=== PATIENT | female | born 1930 | race Caucasian/White ===

== ENCOUNTER 2017-04-17 13:48 | Inpatient (IN) | payer MEDICARE, OTHER ==
[2017-04-17 14:23] LABS: BASO % 0.5 % (0.0-2.0); EOS % 0.5 % (0.0-4.0); LYMPH # 0.5 K/uL (1.0-4.3); LYMPH % 5.7 % (20.0-40.0); MEAN CELL VOLUME 88.5 fL (81.0-99.0); MEAN CORPUSCULAR HEMOGLOBIN 28.1 pg (27.0-31.0); MEAN CORPUSCULAR HGB CONC 31.8 g/dL (33.0-37.0); MEAN PLATELET VOLUME 8.1 fL (7.2-11.7); MONO # 0.7 K/uL (0.0-0.8); MONO % 8.6 % (0.0-10.0); NRBC % 0.1 % (0.0-2.0); PLATELET COUNT 271 K/uL (130-400); RED CELL DISTRIBUTION WIDTH 14.7 % (11.5-14.5); WHITE BLOOD COUNT 8.5 K/uL (4.8-10.8)
[2017-04-17 14:34] LABS: ALKALINE PHOSPHATASE 88 U/L (38-126); ALT/SGPT 36 U/L (9-52); AST/SGOT 22 U/L (14-36); BLOOD UREA NITROGEN 16 mg/dL (7-17); CARBON DIOXIDE 31 mmol/L (22-30); CHLORIDE 103 mmol/L (98-107); GFR AFRICAN-AMERICAN > 60; GLUCOSE,RANDOM 106 mg/dL (65-105); POTASSIUM 3.6 mmol/L (3.6-5.2); SODIUM 138 mmol/L (132-148); TOTAL PROTEIN 6.4 g/dL (6.3-8.3)
--- NOTE | 2017-04-17 14:36 | RAD ---
PROCEDURE: CHEST RADIOGRAPH, 1 VIEW HISTORY: chest pain COMPARISON: None available. FINDINGS: LUNGS: Probable compressive atelectasis right lung base -associated right pleural effusion suggested. Right basal infiltrate here not excluded PLEURA: No pneumothorax. Right pleural effusion and mild moderate. Minimal left pleural effusion probable CARDIOVASCULAR: Cardiomegaly OSSEOUS STRUCTURES: Thoracic spondylosis. Bilateral shoulder arthrosis VISUALIZED UPPER ABDOMEN: Normal. OTHER FINDINGS: None. IMPRESSION: Mild moderate right pleural effusion with probable associated compressive atelectasis right lung base. Right basal infiltrate here not excluded Minimal left pleural effusion probable Cardiomegaly -chronicity unknown
[2017-04-17 14:37] LABS: ALB/GLOB RATIO 0.9 (1.0-2.1)
--- NOTE | 2017-04-17 14:41 | C.PDOC ---
History Of Present Illness 87 year old female is brought into the ED by EMS STP tripping and falling, brought in confused and she does not recall falling. According to EMS patient was found by the police in the park where she tripped and fell. Patient states she lives alone and denies any other complaints at the time. Time Seen by Provider: 04/17/17 14:08 Chief Complaint (Nursing): Medical Clearance History Per: Patient, EMS History/Exam Limitations: other (Confusion) Onset/Duration Of Symptoms: Hrs Current Symptoms Are (Timing): Still Present Severity: Mild Recent travel outside of the [place]: No Additional History Per: Patient Past Medical History Reviewed: Historical Data, Nursing Documentation, Vital Signs Vital Signs: Last Vital Signs Temp 98 F 04/17/17 21:01 Pulse 81 04/17/17 21:01 Resp 20 04/17/17 21:01 BP 181/61 H 04/17/17 21:01 Pulse Ox 96 04/17/17 21:01 - Medical History PMH: Atrial Fibrillation, CHF, HTN, Hypothyroidism Surgical History: No Surg Hx Family History: States: Unknown Family Hx - Social History Hx Alcohol Use: No Hx Substance Use: No - Immunization History Hx Tetanus Toxoid Vaccination: No Hx Influenza Vaccination: No Hx Pneumococcal Vaccination: No Review Of Systems Review Of Systems: ROS cannot be obtained secondary to pt's inabilty to answer questions. (secondary to confusion) Physical Exam - Physical Exam Appears: Non-toxic, Confused Skin: Normal Color, Warm, Dry Head: Abrasion (contusion occipital scalp ), No Other (No gross step off) Eye(s): bilateral: Normal Inspection Nose: No Discharge, No Deformity Oral Mucosa: Moist Throat: Normal, No Erythema, No Exudate Neck: Normal ROM, No Midline Cervical Tenderness, Supple Chest: Symmetrical Cardiovascular: Rhythm Regular, No Murmur Respiratory: Normal Breath Sounds, No Rales, No Rhonchi, No Wheezing Gastrointestinal/Abdominal: Soft, No Tenderness, No Guarding, No Rebound Extremity: Normal ROM, No Pedal Edema, No Calf Tenderness, No Deformity, No Swelling Neurological/Psych: Other (AOx2, person and place) Disoriented To: Time ED Course And Treatment - Laboratory Results Result Diagrams: 04/17/17 14:19 04/17/17 14:19 O2 Sat by Pulse Oximetry: 97 (On RA) Pulse Ox Interpretation: Normal - Radiology CXR: Interpreted by Me, Viewed By Me CXR Interpretation: Yes: Other (Mild moderate right pleural effusion with probable associated compressive atelectasis right lung base. Right basal infiltrate here not excluded. Minimal left pleural effusion probable. Cardiomegaly -chronicity unknown) - CT Scan/US Head CT Other Rad Studies (CT/US): Interpreted By Me, Read By Radiologist, Radiology Report Reviewed CT/US Interpretation: PROCEDURE: CT HEAD WITHOUT CONTRAST. HISTORY: dizziness. COMPARISON: None available. TECHNIQUE: Axial computed tomography images were obtained through the head/brain without intravenous contrast. Radiation dose: Total exam DLP = 791 mGy-cm. This CT exam was performed using one or more of the following dose reduction techniques: Automated exposure control, adjustment of the mA and/or kV according to patient size, and/or use of iterative reconstruction technique. FINDINGS: HEMORRHAGE: No intracranial hemorrhage. BRAIN: No mass effect or edema. Scattered focal lucencies in the subcortical and periventricular white matter suggestive for chronic microvascular ischemic change. More confluent low attenuation seen within the posterior right frontal subcortical region as well as the right posterior parieto-occipital and left occipital regions suggestive for ischemic change likely chronic. Prominent left basal ganglia lacunar infarcts. Additional adjacent lacunar infarcts in the left external capsule. Punctate right caudate head and thalamic lacunar infarcts. VENTRICLES: Unremarkable. No hydrocephalus. CALVARIUM: Unremarkable. PARANASAL SINUSES: Unremarkable as visualized. No significant inflammatory changes. MASTOID AIR CELLS: Unremarkable as visualized. No inflammatory changes. OTHER FINDINGS: Mild soft tissue swelling overlying the posterior occipital cranium. . IMPRESSION: 1. Mild soft tissue swelling overlying the posterior occipital cranium. 2. Chronic microvascular ischemic change. 3. Probable chronic infarcts within the posterior right frontal and posterior right parieto-occipital and left occipital regions as described above. 4. Chronic lacunar infarcts in the right caudate and thalamic regions as well as the left basal ganglia and external capsule regions. If focal neurologic deficit persists, consider MRI. Medical Decision Making Medical Decision Making: Plan: * EKG ordered * CT head ordered * Blood work ordered * CXR ordered * UA ordered Assessment: AMS STP tripping and falling. Case discussed with Dr. Moreno, will be admitted to telemetry for syncope and AMS. Pt became combative and wanted to go home, pt is still confused and is unable to be d/c to herself there is no family present in the ED. Pt is placed in restraints secondary to agitation to protect herself and the staff. Disposition Discussed With .: Loyda Moreno Doctor Will See Patient In The: Hospital Counseled Patient/Family Regarding: Diagnosis - Disposition Disposition: HOSPITALIZED Disposition Time: 16:19 Condition: FAIR - Clinical Impression Clinical Impression: Syncope, Mental status change - Scribe Statement The provider has reviewed the documentation as recorded by the Scribe Hugo Fontenot All medical record entries made by the Scribe were at my direction and personally dictated by me. I have reviewed the chart and agree that the record accurately reflects my personal performance of the history, physical exam, medical decision making, and the department course for this patient. I have also personally directed, reviewed, and agree with the discharge instructions and disposition.
[2017-04-17 15:03] LABS: NEUTROPHIL 90 % (50-75); TOTAL CELLS COUNTED 100
--- NOTE | 2017-04-17 15:09 | CT ---
PROCEDURE: CT HEAD WITHOUT CONTRAST. HISTORY: dizziness COMPARISON: None available. TECHNIQUE: Axial computed tomography images were obtained through the head/brain without intravenous contrast. Radiation dose: Total exam DLP = 791 mGy-cm. This CT exam was performed using one or more of the following dose reduction techniques: Automated exposure control, adjustment of the mA and/or kV according to patient size, and/or use of iterative reconstruction technique. FINDINGS: HEMORRHAGE: No intracranial hemorrhage. BRAIN: No mass effect or edema. Scattered focal lucencies in the subcortical and periventricular white matter suggestive for chronic microvascular ischemic change. More confluent low attenuation seen within the posterior right frontal subcortical region as well as the right posterior parieto-occipital and left occipital regions suggestive for ischemic change likely chronic. Prominent left basal ganglia lacunar infarcts. Additional adjacent lacunar infarcts in the left external capsule. Punctate right caudate head and thalamic lacunar infarcts. VENTRICLES: Unremarkable. No hydrocephalus. CALVARIUM: Unremarkable. PARANASAL SINUSES: Unremarkable as visualized. No significant inflammatory changes. MASTOID AIR CELLS: Unremarkable as visualized. No inflammatory changes. OTHER FINDINGS: Mild soft tissue swelling overlying the posterior occipital cranium. . IMPRESSION: 1. Mild soft tissue swelling overlying the posterior occipital cranium. 2. Chronic microvascular ischemic change. 3. Probable chronic infarcts within the posterior right frontal and posterior right parieto-occipital and left occipital regions as described above. 4. Chronic lacunar infarcts in the right caudate and thalamic regions as well as the left basal ganglia and external capsule regions. If focal neurologic deficit persists, consider MRI.
[2017-04-17 16:35] LABS: RBC URINE 43 /hpf (0-3); URINE BACTERIA FEW (<OCC); URINE BILIRUBIN NEGATIVE (NEGATIVE); URINE BLOOD 2+ (NEGATIVE); URINE COLOR YELLOW (YELLOW); URINE GLUCOSE (UA) NORMAL (Normal); URINE KETONE NEGATIVE (NEGATIVE); URINE LEUKOCYTE ESTERASE 1+ Leu/uL (Negative); URINE PROTEIN 2+ mg/dL (NEGATIVE); URINE UROBILINOGEN NORMAL mg/dL (0.2-1.0); WBC URINE 10 /hpf (0-5)
--- NOTE | 2017-04-17 23:18 | CT ---
EXAM: CT Chest Without Intravenous Contrast CLINICAL HISTORY: 87 years old, female; Pain; Chest pain; Patient HX: Cxr 04-17-17; Additional info: Ab. Chest x /rays TECHNIQUE: Axial computed tomography images of the chest without intravenous contrast. All CT scans at this facility use one or more dose reduction techniques, viz.: automated exposure control; ma/kV adjustment per patient size (including targeted exams where dose is matched to indication; i.e. head); or iterative reconstruction technique. Coronal and sagittal reformatted images were created and reviewed. COMPARISON: No relevant prior studies available. FINDINGS: Lungs: There are moderate right and small left pleural effusions with some adjacent compressive atelectasis. It is difficult to exclude a component of aspiration or pneumonia near the lung bases. There are additional small airspace opacities in the right middle lobe and lingula. These may represent atelectasis or early infiltrates. The upper lungs are clear. Mild scarring in the lung apices. Pleural space: See above. Heart: The heart is mildly enlarged. There is coronary artery calcification. No significant pericardial effusion. There is calcification of the aortic root. Mediastinum: The mid and upper esophagus are patulous. If indicated, this could be further evaluated with esophagram or upper endoscopy. Hilar regions are limited without IV contrast. Thyroid: Right thyroid appears enlarged. If indicated, this could be further evaluated with thyroid sonogram. Bones/joints: Moderate to severe degenerative spine changes. There is marked diffuse osteopenia. No acute fracture. No dislocation. Soft tissues: Unremarkable. Vasculature: Thoracic aorta is densely atherosclerotic and tortuous without aneurysm. The great vessels also demonstrate atherosclerotic calcification. Lymph nodes: No axillary adenopathy. No definite mediastinal adenopathy. Upper abdomen: Scans through the upper abdomen demonstrate no definite acute abnormalities. IMPRESSION: 1. Right thyroid appears enlarged. If indicated, this could be further evaluated with thyroid sonogram. 2. The mid and upper esophagus are patulous. If indicated, this could be further evaluated with esophagram or upper endoscopy. 3. There are moderate right and small left pleural effusions with some adjacent compressive atelectasis. It is difficult to exclude a component of aspiration or pneumonia near the lung bases. 4. There are additional small airspace opacities in the right middle lobe and lingula. These may represent atelectasis or early infiltrates. 5. Additional incidental and/or chronic findings as described.
[2017-04-18] MEDS: Levothyroxine 50 MCG TAB PO SCH (06:29)
[2017-04-18 08:13] LABS: HEMATOCRIT 29.8 % (34.0-47.0); MEAN CELL VOLUME 87.1 fL (81.0-99.0); MEAN CORPUSCULAR HEMOGLOBIN 28.3 pg (27.0-31.0); MEAN CORPUSCULAR HGB CONC 32.5 g/dL (33.0-37.0); MEAN PLATELET VOLUME 8.5 fL (7.2-11.7); RED CELL DISTRIBUTION WIDTH 14.7 % (11.5-14.5)
[2017-04-18 08:22] LABS: BLOOD UREA NITROGEN 12 mg/dL (7-17); CALCIUM 8.1 mg/dl (8.6-10.4); CARBON DIOXIDE 30 mmol/L (22-30); CHLORIDE 103 mmol/L (98-107); CHOLESTEROL 93 mg/dL (0-199); GFR AFRICAN-AMERICAN > 60; GLUCOSE,RANDOM 85 mg/dL (65-105); IRON 18 ug/dL (37-170); POTASSIUM 3.1 mmol/L (3.6-5.2); SODIUM 138 mmol/L (132-148)
[2017-04-18 08:52] LABS: THYROID STIMULATING HORMONE 4.06 mIU/L (0.46-4.68)
[2017-04-18 09:26] LABS: FOLATE > 20.0 ng/mL
--- NOTE | 2017-04-18 09:27 | HP ---
CHIEF COMPLAINT: Confusion. HISTORY OF PRESENT ILLNESS: Ms. Vania Vinson is an 87-year-old female, brought to the emergency room by EMS, has been tripping and falling, confused, and she does not recall falling. According to EMS, the patient was found by the police in the park where she tripped and fell. The patient states that she lives alone and denies any other complaints at this time. I saw the patient in the ER. The patient was confused, got some medications and now was on one-to-one because of the anxiety. PAST MEDICAL HISTORY: Atrial fibrillation, congestive heart failure, hypertension, hypothyroidism. HABITS: No alcohol. No substance abuse. No smoking. FAMILY HISTORY: Father and mother, noncontributory. REVIEW OF SYSTEMS: The patient was seen and examined at the bedside, looks nontoxic, confused. Temperature is fine. Has contusion in the occipital scalp, no gross injuries. No fever. No chills. No hematuria or hematochezia. Review of systems actually cannot be obtained secondary to the patient's condition and answers. PHYSICAL EXAMINATION: VITAL SIGNS: Temperature 98.1, pulse 80, respiratory rate 16, blood pressure 140/81, pulse oximetry 97. HEENT: Head, normocephalic and atraumatic. Eyes, PERRLA. Extraocular muscles are intact. Conjunctivae clear. Nose patent. Mucous membranes moist. NECK: Supple. No carotid bruit or thyromegaly. CHEST: Bilaterally symmetrical. HEART: S1 and S2 positive. LUNGS: Clear to auscultation. ABDOMEN: Soft. Bowel sounds present. No organomegaly. EXTREMITIES: No edema. No cyanosis. NEUROLOGIC: The patient is sleepy. Moving all 4 extremities. Does not look like any focal deficit. LABORATORY DATA: White blood cells 8.5, hemoglobin 8.6, hematocrit 27.0, platelets 271. Sodium 138, potassium 3.6, BUN 16, creatinine 0.8, glucose 106. ASSESSMENT AND PLAN: Ms. Vania Vinson is an 87-year-old lady with anemia, hyperglycemia, came with altered mental status. CAT scan of the head done, showed mild tissue swelling overlying the posterior occipital cranium, chronic microvascular ischemic changes, probably chronic infarcts within the posterior right frontal and posterior right occipital and left occipital region, chronic lacunar infarction in the right caudate and thalamic region as well as the left basal ganglia and external capsular region. The patient has been tripping and falling, rule out syncope. The patient is being combative and wanted to go home. The patient was still confused, unable to be discharged to her home, that will be unsafe discharge. No family in the ED. The patient was put on restraint secondary to agitation and to protect herself and staff. Then after giving Ativan, she was quiet, but still was on one-to-one. The patient has history of atrial fibrillation, congestive heart failure, hypertension, and hypothyroidism. We will repeat labs. Call neurology consult with Dr. Samson Solis. Started on Colace, Cozaar, amlodipine, and Pradaxa. Home medications are levothyroxine and tramadol. Gastrointestinal and deep venous thrombosis prophylaxes. Repeat labs. We will follow up. Loyda Moreno MD
[2017-04-18] MEDS ORDERED: Potassium Chloride 20 mEq ER Tab PO ONE (11:00)
--- NOTE | 2017-04-18 15:53 | PCM.PSYCH ---
Initial Psychiatric Evaluation - Initial Psychiatric Evaluation Type of Admission: Voluntary Legal Status: Capacity Chief Complaint (in patient's own words): "I'm depressed and I need to pee" History of Present Illness and Precipitating Events: The pt is seen, chart reviewed, case discussed with staff Pt is a 87y/o female with a history of AFIB, CHF, HTN, Hypothyroidism who was brought to the ED for tripping and falling. Today pt was consulted because of delirium. Pt was found by the police wandering around the park where she tripped and fell. Pt was interviewed with the help of one of the employees translating. Pt is a poor historian was agitated and irritable during the interview. Pt was very guarded and uncooperative during the interview. Pt reports that she lives alone. Pt appears to be disorganized, demented and forgetful. Pt was combative and repeatedly attempted to get out of bed during the interview. Pt is not oriented to person, place and time. When asked the year , pt said "[birth year]16." When asked if she was depressed, the Pt reported that "I don' t know, I am depressed and I need to Pee." Pt continued to repeat this answer to every question afterwards the rest of the interview. As per the staff, pt was yelling and cursing at the staff and at times tried to hit the staff. However, denies any SI/or any AVH. Past MHX: AFIB, CHF, HTN, Hypothyroidism Current Medications: Active Medications Generic Name Dose Route Start Last Admin Trade Name Freq PRN Reason Stop Dose Admin Amlodipine Besylate 10 mg 04/18/17 10:00 04/18/17 09:32 Norvasc PO 10 mg DAILY MARYBEL Administration Chlorthalidone 25 mg 04/18/17 10:00 04/18/17 09:33 Hygroton PO 25 mg DAILY MARYBEL Administration Dabigatran 75 mg 04/18/17 10:00 04/18/17 09:34 Pradaxa PO 75 mg DAILY MARYBEL Administration Docusate Sodium 100 mg 04/17/17 17:45 04/18/17 09:33 Colace PO 100 mg DAILY MARYBEL Administration Haloperidol Lactate 1 mg 04/18/17 13:08 Haldol IM Q6 PRN Agitation Levothyroxine Sodium 50 mcg 04/18/17 06:30 04/18/17 06:29 Synthroid PO 50 mcg DAILY@0630 MARYBEL Administration Losartan Potassium 50 mg 04/18/17 10:00 04/18/17 09:32 Cozaar PO 50 mg DAILY MARYBEL Administration Pneumococcal Polyvalent Vaccine 0.5 ml 04/19/17 14:00 Pneumovax 23 Vaccine IM 04/19/17 14:01 .ONCE ONE Quetiapine Fumarate 25 mg 04/18/17 13:15 04/18/17 15:02 Seroquel PO Not Given DAILY MARYBEL Tramadol HCl 25 mg 04/17/17 17:36 Ultram PO Q4 PRN Pain, Mild (1-3) Past Psychiatric History - Past Psychiatric History Previous Treatment History: None Pertinent Medical Hx (Current Medical&Sleep Prob, Allergies): Allergies Allergy/AdvReac Type Severity Reaction Status Date / Time No Known Allergies Allergy Verified 04/03/15 10:06 Chlorthalidone [Hygroton] 25 mg PO DAILY 04/03/15 Dabigatran [Pradaxa] 75 mg PO DAILY 04/03/15 Docusate [Colace] 100 mg PO DAILY 04/03/15 Levothyroxine [Synthroid] 50 mg PO DAILY 04/03/15 Losartan [Cozaar] 50 mg PO DAILY 04/03/15 Tramadol HCl [Tramadol HCl] 25 mg PO Q4 PRN 04/03/15 amLODIPine [Norvasc] 2.5 mg PO DAILY 04/03/15 Review of Systems - Review of Systems All systems: reviewed and no additional remarkable complaints except - Neurological Neurological: Abnormal Speech, Behavioral Changes, Confusion - Psychiatric Psychiatric: Depression, Irritability, Mood Swings Mental Status Examination - Personal Presentation Personal Presentation: Looks stated age - Affect Affect: Constricted - Motor Activity Motor Activity: Psychomotor Agitation - Reliability in Providing Information Reliability in Providing Information: Poor, due to alteration in thoughts, Poor , due to altered mood - Speech Speech: Disorganized - Mood Mood: Depressed, Anxious - Formal Thought Process Formal Thought Process: Delusions, Paranoia, Loosening of associations - Cognitive Functions Orientation: Situation Abstract Thinking: [place] Estimate of Intelligence: Below average Judgement: Imparied, as evidence by: Poor judgement, Imparied, as evidence by: Lack of insight into illness - Risk Risk: Falls, Diminished functioning DSM 5 DX - DSM 5 DSM 5 Diagnosis: Delirium due to general medical condition - Recommended/Plan of Treatment Treatment Recommendations and Plan of Treatment: Supportive therapy Guerrero 1 mg I/M q6 Prn Benadryl 25 mg I/M q6 Prn - Smoking Cessation Smoking Cessation Initiated: No
[2017-04-19] MEDS ORDERED: DiphenhydrAMINE 50 mg/ml Inj IM PRN (00:12)
--- NOTE | 2017-04-19 00:37 | CON ---
DATE: NEUROLOGY CONSULTATION REASON FOR CONSULTATION: Altered mental status. HISTORY OF PRESENT ILLNESS: Patient is an 87-year-old female who was brought to the hospital after she was found by the police as she was in a park wandering and she fell there. Patient herself was unable to give history because of her changed mental status. History is mainly from the chart. Patient is very confused. REVIEW OF SYSTEMS: Denies any headache or dizziness. Denies any chest pain. Denies any weakness in arms or legs. PAST MEDICAL HISTORY: Includes atrial fibrillation, congestive heart failure, hypertension, hypothyroidism. MEDICATIONS AT HOME: Include amlodipine, tramadol, losartan, levothyroxine, docusate, Pradaxa, and *------*. ALLERGIES: NO KNOWN DRUG ALLERGIES. SOCIAL HISTORY: Patient denies smoking, use of alcohol or illicit drugs. FAMILY HISTORY: Noncontributory. PHYSICAL EXAMINATION GENERAL: Patient is an elderly female, lying in the bed, in no acute distress, slightly restless. VITAL SIGNS: Her blood pressure is 164/80, heart rate is 81 per minute, breathing at a rate of 16 per minute, temperature is 98 degrees Fahrenheit. HEENT: Head is normocephalic, atraumatic. NECK: Supple. There are no carotid bruits. LUNGS: Clear. CARDIOVASCULAR SYSTEM: S1, S2 audible. No murmurs. ABDOMEN: Soft, nontender. Bowel sounds present. NEUROLOGIC: Mental status: Patient is awake, alert. She does not know the year or the month. She follows simple commands. Cranial nerve examination: Pupils are 3 mm bilaterally reactive to light. Her visual meza are full. Extraocular movements are intact. There is no facial asymmetry. Tongue is midline. Motor examination: Tone is normal. Power is 5/5 bilaterally in all extremities. Reflexes +2 and symmetrical. Plantars downgoing bilaterally. Gait is deferred at the moment. LABORATORY DATA: Reviewed. It showed WBC of 9.0, hemoglobin 9.7, hematocrit 29.8 and platelets of 324. Sodium 138, potassium 3.1, chloride 103, carbon dioxide 30, BUN of 12, creatinine 0.7 and glucose of 85. Her urinalysis shows wbc 10, nitrites negative. She had a CT scan of the head done, which shows mild soft tissue swelling overlying the posterior occipital cranium, chronic microvascular ischemic changes, probable chronic infarction in the posterior right frontal, right parietooccipital and left occipital regions. Chronic lacunar infarction in the right carotid and thalamic regions. IMPRESSION: 1. Altered mental status which appears to be secondary to underlying dementia. 2. Cerebrovascular disease. RECOMMENDATIONS: 1. Patient was supposed to have MRI however she is very restless. 2. Patient to have an electroencephalogram. 3. Patient to have vitamin B12, T4 and TSH levels done. 4. Patient is currently on Pradaxa for her underlying atrial fibrillation, which may be continued. 5. Patient also to be continued on levothyroxine. 6. We will start patient on Seroquel 25 mg twice a day and we will give intermittent Haldol for agitation. 7. Please continue other treatment and supportive care. Thank you for the opportunity to participate in the care of this patient. Samson Solis MD
[2017-04-19] MEDS ORDERED: Pneumococcal 23-Valent Vaccine IM ONE ×2 (02:00→14:00)
--- NOTE | 2017-04-19 03:32 | PN ---
DATE: SUBJECTIVE: The patient is an 87-year-old female. The patient was seen and examined at the bedside early in the morning. Patient's son was standing on the bedside also. Patient is awake, alert, but confused, moving all 4 extremities, is not able to give review of systems, but no fever, no nausea, vomiting or diarrhea. PHYSICAL EXAMINATION: VITAL SIGNS: Temperature is 99.7, pulse 99, blood pressure 168/54, respiratory rate 20. HEENT: Head is normocephalic and atraumatic. Eyes: PERRLA. Extraocular muscles intact. Conjunctivae are clear. Nose patent. Mucous membrane moist. NECK: Supple. No carotid bruits. No JVD or thyromegaly. CHEST: Bilaterally symmetrical. HEART: S1 and S2 positive. LUNGS: Clear to auscultation. ABDOMEN: Soft. Bowel sounds positive. No organomegaly. EXTREMITIES: No edema. No cyanosis. NEUROLOGIC: The patient is awake and alert, moving all 4 extremities. No focal deficit. MEDICATIONS: Colace, Cozaar, Haldol, chlorthalidone, Norvasc, Pneumovax, Pradaxa, Seroquel, Synthroid, tramadol. LABORATORY DATA: White blood cells 9.0, hemoglobin 9.7, hematocrit 29.8, platelets 324. Sodium 138, potassium 3.1, BUN 12, creatinine 0.7, glucose 85, iron 18, saturation 7. BNP 2850. ASSESSMENT AND PLAN: Ms. Vania Vinson is an 87-year-old lady with anemia, hypokalemia with a replace, hypocalcemia, iron deficiency, rule out congestive heart failure, proteinuria, hematuria, came with altered mental status, seen by the psychiatrist. Bilateral carotid Doppler of the neck is done, results are pending. CAT scan of the chest is done, right thyroid appears enlarged. According to the examining thyroid sonogram, the mid and upper esophagus are patulous. If indicated, this would be further evaluated by esophagogram or upper endoscopy. There are moderate right and small left pleural effusions with some adjacent compressive atelectasis, it is difficult to exclude the components of aspiration or pneumonia. Near the lung base, there are decent small air space opacities in the right middle lobe and in lingula. CAT scan of the head is done. A neurology consult called with Dr. Samson Solis, waiting for the input. Patient is getting Colace, losartan, Haldol, amlodipine, Pradaxa, levothyroxine and tramadol. Gastrointestinal and deep venous thrombosis prophylaxis. Repeat labs. Loyda Moreno MD MTDSandro
[2017-04-19] MEDS: Levothyroxine 50 MCG TAB PO SCH (05:39)
--- NOTE | 2017-04-19 08:13 | CP.PCM.CON ---
<Rey Helms - Last Filed: 04/19/17 16:19> History of Present Illness - History of Present Illness History of Present Illness: Cardiology consult note for Dr. Zabala Patient is an 87 year old female with a past medical history of Arteriosclerotic heart disease, COPD, hypertension, mitral regurgitation, aortic regurgitation, and tricuspid regurgitation, DM, cardiomyopathy , chronic atrial fibrillation ( once treated with cardioversion >10 years ago), uncontrolled hypothyroidism, depression and confusion who presented to [facility] on 04/17/17 after [place] the police [place] the park [place]p [place]. Upon being admitted to the ED patient was mentally altered and had no recollection of the event. Throughout course of ED admit patient wanted to leave and became combative in the process still mentally altered. Further history was taken from patients son Ryne Sears. As per patients son patient has a habit of wandering away from home and forgetting how to return back to her house. Patient suffers from episodes of dementia and confusion. First incident was a year ago patient was found passed out at another park which was 48 blocks away from her house; patient walked this distance because she couldnt remember how to get back home. Patient denied syncopizing during this episode and was admitted to [facility] where she was initially being evaluated to be placed in a m[facility] but was deemed able to live on her own and discharged home. Cause of syncope at the [facility] admission was said to be vasovagal in nature. The patient also experienced another episode of syncope in which she fell at hit her chin on a curb five months ago. Patients son states her chin and entire chest wall was bruised. Also states that since this incident she has suffered from bilateral lower extremity edema. During this episode of syncope patient refused to go to the hospital and seek medical care. Overall patient is normally active because she had a dog which she would walk every fifteen minutes the entire day. In order to leave her apartment to go outside requires patient to take thirty steps downstairs; son states that at times he noticed his mother having difficulty managing these amount of steps but at other times she had no problems at all stating the fatigue was inconsistent. PMD: Dr. Enmanuel Nicole [place], [place] [phone] (treating her since the 1970s; patient sees him for both primary care and cardiology) Baller Tender: Dr. [place], [place] Past medical history: Arteriosclerotic heart disease, COPD, hypertension, mitral regurgitation, aortic regurgitation, and tricuspid regurgitation, DM, cardiomyopathy , chronic atrial fibrillation ( once treated with cardioversion > 10 years ago), uncontrolled hypothyroidism, depression and confusion Medications: Losartan 50 qD, pradaxa 75 BID (Lowered dosage of pradaxa bc of bleeding), clorthalidone 25 qD, lanoxin .125 qD, Toprol xl 25 qD Allergies: NKDA Social history: denies tobacco, alcohol, illicit drug use Family history: Atrial fibrillation- son Review of Systems - Review of Systems Systems not reviewed;Unavailable: Uncooperative Review of Systems: not obtained due to patient's altered mental status Past Patient History - Past Medical History & Family History Past Medical History?: Yes - Past Social History Smoking Status: Never Smoked - CARDIAC Hx Cardiac Disorders: Yes (A FIB) Hx Congestive Heart Failure: Yes Hx Hypertension: Yes - PULMONARY Hx Respiratory Disorders: No - NEUROLOGICAL Hx Neurological Disorder: No - HEENT Hx HEENT Problems: No - RENAL Hx Chronic Kidney Disease: No - ENDOCRINE/METABOLIC Hx Hypothyroidism: Yes - HEMATOLOGICAL/ONCOLOGICAL Hx Blood Disorders: No - INTEGUMENTARY Hx Dermatological Problems: No - MUSCULOSKELETAL/RHEUMATOLOGICAL Hx Musculoskeletal Disorders: No Hx Falls: Yes (fell in the park) - GASTROINTESTINAL Hx Gastrointestinal Disorders: No - GENITOURINARY/GYNECOLOGICAL Hx Genitourinary Disorders: No - PSYCHIATRIC Hx Psychophysiologic Disorder: No Hx Substance Use: No - SURGICAL HISTORY Hx Surgeries: Yes Other/Comment: ablation procedure - ANESTHESIA Hx Anesthesia: Yes Hx Anesthesia Reactions: No Hx Malignant Hyperthermia: No Meds Allergies/Adverse Reactions: Allergies Allergy/AdvReac Type Severity Reaction Status Date / Time No Known Allergies Allergy Verified 04/03/15 10:06 - Medications Medications: Current Medications Amlodipine Besylate (Norvasc) 10 mg PO DAILY [facility] Last Admin: 04/18/17 09:32 Dose: 10 mg Calcium/Vitamin D (Oscal-D 250 Mg-125 Units Tab) 1 tab PO DAILY [facility] Chlorthalidone (Hygroton) 25 mg PO DAILY [facility] Last Admin: 04/18/17 09:33 Dose: 25 mg Dabigatran (Pradaxa) 75 mg PO DAILY [facility] Last Admin: 04/18/17 09:34 Dose: 75 mg Diphenhydramine HCl (Benadryl) 25 mg IM Q6 PRN PRN Reason: Agitation Diphenhydramine HCl (Benadryl) 25 mg PO Q6 PRN PRN Reason: Anxiety Docusate Sodium (Colace) 100 mg PO DAILY [facility] Last Admin: 04/18/17 09:33 Dose: 100 mg Ferrous Sulfate (Feosol Liq) 300 mg PO TID [facility] Haloperidol Lactate (Haldol) 1 mg IM Q6 PRN PRN Reason: Agitation Levothyroxine Sodium (Synthroid) 50 mcg PO DAILY@0630 [facility] Last Admin: 04/19/17 05:39 Dose: 50 mcg Losartan Potassium (Cozaar) 50 mg PO DAILY [facility] Last Admin: 04/18/17 09:32 Dose: 50 mg Pneumococcal Polyvalent Vaccine (Pneumovax 23 Vaccine) 0.5 ml IM .ONCE ONE Stop: 04/19/17 14:01 Potassium Chloride (K-Dur 20 Meq Er Tab) 20 meq PO DAILY [facility] Quetiapine Fumarate (Seroquel) 25 mg PO HS [facility] Tramadol HCl (Ultram) 25 mg PO Q4 PRN PRN Reason: Pain, Mild (1-3) Physical Exam - Head Exam Head Exam: ATRAUMATIC, NORMAL INSPECTION, NORMOCEPHALIC - Eye Exam Eye Exam: EOMI, Normal appearance - ENT Exam ENT Exam: Mucous Membranes Dry - Respiratory Exam Respiratory Exam: Clear to Auscultation Bilateral, NORMAL BREATHING PATTERN - Cardiovascular Exam Cardiovascular Exam: REGULAR RHYTHM, +S1, +S2, Systolic Murmur - GI/Abdominal Exam GI & Abdominal Exam: Normal Bowel Sounds, Soft - Extremities Exam Extremities exam: Positive for: calf tenderness (bilateral), pedal edema ( bilateral) - Neurological Exam Neurological exam: Altered - Psychiatric Exam Psychiatric exam: Normal Affect, Normal Mood - Skin Skin Exam: Intact, Normal Color Results - Vital Signs Recent Vital Signs: Last Vital Signs Temp 98.4 F 04/18/17 23:35 Pulse 75 04/19/17 04:01 Resp 20 04/18/17 23:35 BP 173/64 H 04/18/17 23:35 Pulse Ox 98 04/18/17 23:35 - Labs Result Diagrams: 04/19/17 11:21 04/19/17 11:21 Labs: Laboratory Results - last 24 hr 04/18/17 04/18/17 04/18/17 07:55 07:55 07:55 WBC 9.0 RBC 3.42 L Hgb 9.7 L Hct 29.8 L MCV 87.1 MCH 28.3 MCHC 32.5 L RDW 14.7 H Plt Count 324 MPV 8.5 Sodium 138 Potassium 3.1 L Chloride 103 Carbon Dioxide 30 Anion Gap 8 L BUN 12 Creatinine 0.7 Est GFR ( Amer) > 60 Est GFR (Non-Af Amer) > 60 Random Glucose 85 Hemoglobin A1c Calcium 8.1 L Iron 18 L TIBC 256 % Saturation 7 L Triglycerides 61 Cholesterol 93 LDL Cholesterol Direct 38 HDL Cholesterol 39 Vitamin B12 654 Folate > 20.0 TSH 3rd Generation 4.06 04/18/17 07:55 WBC RBC Hgb Hct MCV MCH MCHC RDW Plt Count MPV Sodium Potassium Chloride Carbon Dioxide Anion Gap BUN Creatinine Est GFR ( Amer) Est GFR (Non-Af Amer) Random Glucose Hemoglobin A1c 5.4 Calcium Iron TIBC % Saturation Triglycerides Cholesterol LDL Cholesterol Direct HDL Cholesterol Vitamin B12 Folate TSH 3rd Generation Assessment & Plan - Assessment and Plan (Free Text) Assessment: Patient is an 87 year old female with a past medical history of Arteriosclerotic heart disease, COPD, hypertension, mitral regurgitation, aortic regurgitation, and tricuspid regurgitation, DM, cardiomyopathy , chronic atrial fibrillation,uncontrolled hypothyroidism, depression and confusion who presented to [facility] on 04/17/17 after being [place] the police [place] the park [place]. Plan: 1. Syncope r/o cardiac etiology vs neurological etiology - Carotid dopplers ordered - Echocardiogram ordered; results pending. Previous echo requested and to be faxed - BNP elevated at 2860 - Home medication Toprol and Lanoxin restarted <Ervin Zabala - Last Filed: 04/20/17 00:30> Meds - Medications Medications: Current Medications Amlodipine Besylate (Norvasc) 10 mg PO DAILY [facility] Last Admin: 04/19/17 09:31 Dose: 10 mg Calcium/Vitamin D (Oscal-D 250 Mg-125 Units Tab) 1 tab PO DAILY [facility] Last Admin: 04/19/17 09:44 Dose: 1 tab Chlorthalidone (Hygroton) 25 mg PO DAILY [facility] Last Admin: 04/19/17 09:44 Dose: 25 mg Dabigatran (Pradaxa) 75 mg PO DAILY [facility] Last Admin: 04/19/17 09:44 Dose: 75 mg Digoxin (Lanoxin) 0.125 mg PO DAILY@1800 [facility] Last Admin: 04/19/17 17:57 Dose: 0.125 mg Diphenhydramine HCl (Benadryl) 25 mg IM Q6 PRN PRN Reason: Agitation Diphenhydramine HCl (Benadryl) 25 mg PO Q6 PRN PRN Reason: Anxiety Last Admin: 04/19/17 09:33 Dose: 25 mg Docusate Sodium (Colace) 100 mg PO DAILY [facility] Last Admin: 04/19/17 09:36 Dose: 100 mg Ferrous Sulfate (Feosol Liq) 300 mg PO TID [facility] Last Admin: 04/19/17 17:56 Dose: 300 mg Haloperidol Lactate (Haldol) 1 mg IM Q6 PRN PRN Reason: Agitation Last Admin: 04/19/17 15:39 Dose: 1 mg Levothyroxine Sodium (Synthroid) 50 mcg PO DAILY@0630 [facility] Last Admin: 04/19/17 05:39 Dose: 50 mcg Losartan Potassium (Cozaar) 50 mg PO DAILY [facility] Last Admin: 04/19/17 09:36 Dose: 50 mg Metoprolol Succinate (Toprol Xl) 25 mg PO DAILY [facility] Last Admin: 04/19/17 17:00 Dose: 25 mg Potassium Chloride (K-Dur 20 Meq Er Tab) 20 meq PO DAILY [facility] Last Admin: 04/19/17 09:41 Dose: 20 meq Quetiapine Fumarate (Seroquel) 25 mg PO HS [facility] Last Admin: 04/19/17 21:34 Dose: 25 mg Tramadol HCl (Ultram) 25 mg PO Q4 PRN PRN Reason: Pain, Mild (1-3) Last Admin: 04/19/17 09:35 Dose: 25 mg Results - Vital Signs Recent Vital Signs: Last Vital Signs Temp 97.7 F 04/19/17 15:13 Pulse 106 H 04/19/17 16:00 Resp 20 04/19/17 15:13 BP 163/58 H 04/19/17 15:13 Pulse Ox 96 04/19/17 15:13 - Labs Result Diagrams: 04/19/17 11:21 04/19/17 11:21 Labs: Laboratory Results - last 24 hr 04/19/17 04/19/17 11:21 11:21 WBC 11.3 H RBC 3.28 L Hgb 9.3 L Hct 28.8 L MCV 87.9 MCH 28.5 MCHC 32.4 L RDW 14.9 H Plt Count 264 MPV 8.5 Sodium 138 Potassium 3.0 L Chloride 101 Carbon Dioxide 32 H Anion Gap 9 L BUN 9 Creatinine 0.7 Est GFR ( Amer) > 60 Est GFR (Non-Af Amer) > 60 Random Glucose 138 H Calcium 7.8 L Assessment & Plan (1) CHF (congestive heart failure) Status: Acute (2) Mental status change Status: Acute (3) Syncope Status: Acute (4) Atrial fibrillation with slow ventricular response Status: Acute (5) Dizziness Status: Acute Attending/Attestation - Attestation I have personally seen and examined this patient.: Yes I have fully participated in the care of the patient.: Yes I have reviewed all pertinent clinical information: Yes Notes (Text): 04/20/17 00:29 87 year old female with hx of dementia, afib on pradaxa , chf presenting with ? syncopal episode check echo cont home cardiac meds monitor on telemetry further titration based on clinical course
--- NOTE | 2017-04-19 09:23 | CP.PCM.CON ---
<Heidy Brenner - Last Filed: 04/19/17 09:26> History of Present Illness - History of Present Illness History of Present Illness: GI Fellow PGY4 Consult Note This is a 87yF with pmhx of HTN, Afib on OAC Pradaxa, Hypothyroidism, Dementia presenting to ER s/p fall and confusion. On admission pt was found to be anemic compared to Hgb on prior visit. Pt's Hgb was 12.6 on 01/2017 and now is 8.6/9.7 MCV 88. Pt is a poor historian due to delirium and dementia but denies any rectal bleeding. Per nursing no melena or hematochezia and no signs of GI bleeding. No prior records of EGD/Colonoscopy in EMR here. Pt was also seen by Psych for Delirium likely due to underlying medical consdition, possible UTI/ PNA. ROS: Unable to be obtained 2/2 AMS PmHx: as stated in HPI PsHX: Unable to be obtained 2/2 AMS SHx: Unable to be obtained 2/2 AMS FHx: Unable to be obtained 2/2 AMS Past Patient History - Past Medical History & Family History Past Medical History?: Yes - Past Social History Smoking Status: Never Smoked - CARDIAC Hx Cardiac Disorders: Yes (A FIB) Hx Congestive Heart Failure: Yes Hx Hypertension: Yes - PULMONARY Hx Respiratory Disorders: No - NEUROLOGICAL Hx Neurological Disorder: No - HEENT Hx HEENT Problems: No - RENAL Hx Chronic Kidney Disease: No - ENDOCRINE/METABOLIC Hx Hypothyroidism: Yes - HEMATOLOGICAL/ONCOLOGICAL Hx Blood Disorders: No - INTEGUMENTARY Hx Dermatological Problems: No - MUSCULOSKELETAL/RHEUMATOLOGICAL Hx Musculoskeletal Disorders: No Hx Falls: Yes (fell in the park) - GASTROINTESTINAL Hx Gastrointestinal Disorders: No - GENITOURINARY/GYNECOLOGICAL Hx Genitourinary Disorders: No - PSYCHIATRIC Hx Psychophysiologic Disorder: No Hx Substance Use: No - SURGICAL HISTORY Hx Surgeries: Yes Other/Comment: ablation procedure - ANESTHESIA Hx Anesthesia: Yes Hx Anesthesia Reactions: No Hx Malignant Hyperthermia: No Meds Allergies/Adverse Reactions: Allergies Allergy/AdvReac Type Severity Reaction Status Date / Time No Known Allergies Allergy Verified 04/03/15 10:06 - Medications Medications: Current Medications Amlodipine Besylate (Norvasc) 10 mg PO DAILY [facility] Last Admin: 04/18/17 09:32 Dose: 10 mg Calcium/Vitamin D (Oscal-D 250 Mg-125 Units Tab) 1 tab PO DAILY [facility] Chlorthalidone (Hygroton) 25 mg PO DAILY [facility] Last Admin: 04/18/17 09:33 Dose: 25 mg Dabigatran (Pradaxa) 75 mg PO DAILY [facility] Last Admin: 04/18/17 09:34 Dose: 75 mg Diphenhydramine HCl (Benadryl) 25 mg IM Q6 PRN PRN Reason: Agitation Diphenhydramine HCl (Benadryl) 25 mg PO Q6 PRN PRN Reason: Anxiety Docusate Sodium (Colace) 100 mg PO DAILY [facility] Last Admin: 04/18/17 09:33 Dose: 100 mg Ferrous Sulfate (Feosol Liq) 300 mg PO TID [facility] Haloperidol Lactate (Haldol) 1 mg IM Q6 PRN PRN Reason: Agitation Levothyroxine Sodium (Synthroid) 50 mcg PO DAILY@0630 [facility] Last Admin: 04/19/17 05:39 Dose: 50 mcg Losartan Potassium (Cozaar) 50 mg PO DAILY [facility] Last Admin: 04/18/17 09:32 Dose: 50 mg Pneumococcal Polyvalent Vaccine (Pneumovax 23 Vaccine) 0.5 ml IM .ONCE ONE Stop: 04/19/17 14:01 Potassium Chloride (K-Dur 20 Meq Er Tab) 20 meq PO DAILY [facility] Quetiapine Fumarate (Seroquel) 25 mg PO HS [facility] Tramadol HCl (Ultram) 25 mg PO Q4 PRN PRN Reason: Pain, Mild (1-3) Physical Exam - Constitutional Appears: Agitated, Confused - Head Exam Head Exam: ATRAUMATIC, NORMAL INSPECTION, NORMOCEPHALIC - Eye Exam Eye Exam: EOMI, Normal appearance, PERRL Pupil Exam: NORMAL ACCOMODATION, PERRL - ENT Exam ENT Exam: Mucous Membranes Moist, Normal Exam - Neck Exam Neck exam: Positive for: Normal Inspection - Respiratory Exam Respiratory Exam: NORMAL BREATHING PATTERN - Cardiovascular Exam Cardiovascular Exam: Irregular Rhythm - GI/Abdominal Exam GI & Abdominal Exam: Normal Bowel Sounds, Soft. absent: Diminished Bowel Sounds , Distended, Firm, Organomegaly, Tenderness - Rectal Exam Additional comments: brown stool, no melena/hematochezia - Extremities Exam Extremities exam: Positive for: normal inspection. Negative for: pedal edema - Back Exam Back exam: NORMAL INSPECTION - Neurological Exam Neurological exam: Alert - Psychiatric Exam Psychiatric exam: Agitated - Skin Skin Exam: Dry, Intact, Normal Color, Warm Results - Vital Signs Recent Vital Signs: Last Vital Signs Temp 98.4 F 04/18/17 23:35 Pulse 75 04/19/17 04:01 Resp 20 04/18/17 23:35 BP 173/64 H 04/18/17 23:35 Pulse Ox 98 04/18/17 23:35 - Labs Result Diagrams: 04/18/17 07:55 04/18/17 07:55 Labs: Laboratory Results - last 24 hr 04/18/17 07:55 Vitamin B12 654 Folate > 20.0 Assessment & Plan - Assessment and Plan (Free Text) Assessment: This is a 87yF presenting to Er s/p fall. 1. Delirium 2. Anemia 3. Afib on OAC 4. Possible UTI/PNA Plan: -Continue supportive care for delirium, may need abx for possible UTI/PNA -No active GI bleeding, rectal exam with yellow brown stool, Hgb stable, hemodynamically stable -Will continue to monitor H/H and transfuse as needed -Continue OAC for Afib, defer to cardiology -No plan for endoscopic evaluation at this time, if Hgb trends down or active GI bleed will reevaluate -Continue Heart healthy diet -Will continue to follow closely <Jake Martin - Last Filed: 04/19/17 14:12> Meds - Medications Medications: Current Medications Amlodipine Besylate (Norvasc) 10 mg PO DAILY [facility] Last Admin: 04/19/17 09:31 Dose: 10 mg Calcium/Vitamin D (Oscal-D 250 Mg-125 Units Tab) 1 tab PO DAILY [facility] Last Admin: 04/19/17 09:44 Dose: 1 tab Chlorthalidone (Hygroton) 25 mg PO DAILY [facility] Last Admin: 04/19/17 09:44 Dose: 25 mg Dabigatran (Pradaxa) 75 mg PO DAILY [facility] Last Admin: 04/19/17 09:44 Dose: 75 mg Diphenhydramine HCl (Benadryl) 25 mg IM Q6 PRN PRN Reason: Agitation Diphenhydramine HCl (Benadryl) 25 mg PO Q6 PRN PRN Reason: Anxiety Last Admin: 04/19/17 09:33 Dose: 25 mg Docusate Sodium (Colace) 100 mg PO DAILY [facility] Last Admin: 04/19/17 09:36 Dose: 100 mg Ferrous Sulfate (Feosol Liq) 300 mg PO TID [facility] Last Admin: 04/19/17 09:34 Dose: 300 mg Haloperidol Lactate (Haldol) 1 mg IM Q6 PRN PRN Reason: Agitation Levothyroxine Sodium (Synthroid) 50 mcg PO DAILY@0630 [facility] Last Admin: 04/19/17 05:39 Dose: 50 mcg Losartan Potassium (Cozaar) 50 mg PO DAILY [facility] Last Admin: 04/19/17 09:36 Dose: 50 mg Potassium Chloride (K-Dur 20 Meq Er Tab) 20 meq PO DAILY [facility] Last Admin: 04/19/17 09:41 Dose: 20 meq Quetiapine Fumarate (Seroquel) 25 mg PO HS [facility] Tramadol HCl (Ultram) 25 mg PO Q4 PRN PRN Reason: Pain, Mild (1-3) Last Admin: 04/19/17 09:35 Dose: 25 mg Results - Vital Signs Recent Vital Signs: Last Vital Signs Temp 98.4 F 04/18/17 23:35 Pulse 70 04/19/17 08:00 Resp 20 04/18/17 23:35 BP 173/64 H 04/18/17 23:35 Pulse Ox 98 04/18/17 23:35 - Labs Result Diagrams: 04/19/17 11:21 04/19/17 11:21 Labs: Laboratory Results - last 24 hr 04/19/17 04/19/17 11:21 11:21 WBC 11.3 H RBC 3.28 L Hgb 9.3 L Hct 28.8 L MCV 87.9 MCH 28.5 MCHC 32.4 L RDW 14.9 H Plt Count 264 MPV 8.5 Sodium 138 Potassium 3.0 L Chloride 101 Carbon Dioxide 32 H Anion Gap 9 L BUN 9 Creatinine 0.7 Est GFR ( Amer) > 60 Est GFR (Non-Af Amer) > 60 Random Glucose 138 H Calcium 7.8 L Attending/Attestation - Attestation I have personally seen and examined this patient.: Yes I have fully participated in the care of the patient.: Yes I have reviewed all pertinent clinical information: Yes Notes (Text): 04/19/17 14:02 I have seen and examined patient with GI fellow. Agree with above documentation with the following additions. In brief, this is an 87 year old female with history of atrial fibrillation on pradaxa, HTN, dementia, hypothyroidism who was brought to hospital after having mechanical fall while walking in park. Patient is currently unable to participate in meaningful conversation due to acute delerium condition. Additional information obtained via chart review, discussion with nursing staff, and discussion with patient family member. GI called for evaluation of worsening anemia. She denies abdominal pain, nausea, vomiting, diarrhea, fever/chills, melena, weight loss, or change in bowel habits. Unclear regarding prior endoscopic history. Atrial fibrillation on pradaxa HTN Dementia with acute delerium UTI Anemia, normocytic - Diet as tolerated - Suggest beginning antibiotic therapy for UTI given acute delerious state - H/H stable, rectal exam performed today shows yellow/brown stool without evidence of overt bleeding, continue to monitor - Patient would likely benefit from endoscopic evaluation of progressive anemia , however this can be performed electively following resolution of acute medical condition. Will need to discuss with family members regarding prior endoscopic history. - Will continue to monitor patient clincal course
[2017-04-19] MEDS: Ferrous Sulfate 300 mg/5 mL Liq UD PO SCH ×3 (09:34→17:56)
[2017-04-19] MEDS: Tramadol 25 mg PO PRN (09:35)
[2017-04-19] MEDS: Potassium Chloride 20 mEq ER Tab PO SCH (09:41)
[2017-04-19] MEDS: Calcium-Vit D 250 mg-125 Units Tab UD PO SCH (09:44)
[2017-04-19] MEDS ORDERED: Influenza Vaccine 60 mcg/0.5 mL SYR (4YR UP) IM ONE (10:00)
[2017-04-19] MEDS ORDERED: Influenza Virus Vaccine 45 mcg/0.5 ml Syr (36 months - 7 yrs) IM ONE (10:00)
[2017-04-19 11:27] LABS: HEMATOCRIT 28.8 % (34.0-47.0); MEAN CELL VOLUME 87.9 fL (81.0-99.0); MEAN CORPUSCULAR HEMOGLOBIN 28.5 pg (27.0-31.0); MEAN CORPUSCULAR HGB CONC 32.4 g/dL (33.0-37.0); MEAN PLATELET VOLUME 8.5 fL (7.2-11.7); RED CELL DISTRIBUTION WIDTH 14.9 % (11.5-14.5); WHITE BLOOD COUNT 11.3 K/uL (4.8-10.8)
[2017-04-19 11:45] LABS: BLOOD UREA NITROGEN 9 mg/dL (7-17); CALCIUM 7.8 mg/dl (8.6-10.4); CARBON DIOXIDE 32 mmol/L (22-30); CHLORIDE 101 mmol/L (98-107); GFR AFRICAN-AMERICAN > 60; GLUCOSE,RANDOM 138 mg/dL (65-105); SODIUM 138 mmol/L (132-148)
--- NOTE | 2017-04-19 13:44 | MRI ---
PROCEDURE: MRI BRAIN WITHOUT CONTRAST HISTORY: Syncope COMPARISON: Noncontrast head CT from 04/17/2017 TECHNIQUE: Multiplanar, multisequence MR images of the brain were obtained without intravenous contrast enhancement. FINDINGS: HEMORRHAGE: None DWI: No evidence of an acute or early subacute infarction. 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 There are severe chronic microangiopathic changes. There is no mass, mass effect or abnormal extra-axial fluid collection. There are old lacunar infarctions in the centrum semiovale. The midline sagittal structures are normal. VENTRICLES: There is moderate age-related global parenchymal volume loss and proportionate enlargement of the ventricles and cortical sulci. There are prominent perivascular spaces in the basal ganglia. CRANIUM: There is normal bone marrow signal pattern. ORBITS: Grossly unremarkable. PARANASAL SINUSES/MASTOIDS: The paranasal sinuses are predominantly clear. There is a large right mastoid effusion. The left mastoid air cells are clear. VASCULAR SYSTEM: There are normal signal voids in the larger intracranial arteries. OTHER FINDINGS: None. IMPRESSION: 1. No acute intracranial abnormality. 2. Severe chronic microangiopathic changes and moderate age-related global parenchymal volume loss. 3. 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
--- NOTE | 2017-04-19 13:54 | VASCLAB ---
PROCEDURE: HISTORY: Syncope COMPARISON: None available. TECHNIQUE: Grayscale and duplex Doppler evaluation of the cervical carotid and vertebral arteries were performed. The common carotid, carotid bifurcations and cervical Internal Carotid Artery (ICA) and proximal External Carotid Artery (ECA) were evaluated. The vertebral arteries were evaluated for gross patency and flow direction. Report prepared by Ti Kim, BS, RVT FINDINGS: RIGHT CAROTID ARTERIES: 1. Common Carotid Artery: No significant focal plaque formation of the right common carotid artery. Maximum Peak Systolic velocity: 62 cm/sec: End-diastolic velocity 16 cm/sec. 2. Carotid Bifurcation: plaque formation. Maximum Peak Systolic velocity: 52 cm/sec: End-diastolic velocity 11 cm/sec. 3. Internal Carotid Artery: Plaque description: 3.1. Proximal Segment: Peak systolic velocity 190 cm/sec: End-diastolic velocity 45 cm/sec - % stenosis 60-70% 3.2. Middle Segment: Peak systolic velocity 184 cm/sec: End-diastolic velocity 48 cm/sec - % stenosis 60-70% 3.3. Distal Segment: Peak systolic velocity 76 cm/sec: End-diastolic velocity 13 cm/sec - % stenosis 0-15% 4. External Carotid Artery: No significant focal plaque formation. Peak systolic velocity 0 cm/sec 5. ICA/CCA Ratio: 3.0 LEFT CAROTID ARTERIES: 1. Common Carotid Artery: No significant focal plaque formation of the left common carotid artery. Maximum Peak Systolic velocity: 105 cm/sec: End-diastolic velocity 17 cm/sec. 2. Carotid Bifurcation: plaque formation. Maximum Peak Systolic velocity: 141 cm/sec: End-diastolic velocity 21 cm/sec. 3. Internal Carotid Artery: Plaque description: 3.1. Proximal Segment: Peak systolic velocity 225 cm/sec: End-diastolic velocity 37 cm/sec - % stenosis 60-70% 3.2. Middle Segment: Peak systolic velocity 87 cm/sec: End-diastolic velocity 11 cm/sec - % stenosis 0-15% 3.3. Distal Segment: Peak systolic velocity 118 cm/sec: End-diastolic velocity 25 cm/sec - % stenosis 0-15% 4. External Carotid Artery: No significant focal plaque formation. Peak systolic velocity 206 cm/sec 5. ICA/CCA Ratio: VERTEBRAL ARTERIES: 1. Right Vertebral Artery: The right vertebral artery flow direction is antegrade. 2. Left Vertebral Artery: The left vertebral artery flow direction is antegrade. OTHER FINDINGS: 1. Right Brachial Blood pressure: mmHg. 2. Left Brachial Blood pressure: mmHg. IMPRESSION: RIGHT: 60-70% stenosis of the right proximal ICA with moderate hemodynamic significance. Absent flow velocity noted in the right external carotid artery. LEFT: 60-70% stenosis of the left proximal ICA with moderate hemodynamic significance.
--- NOTE | 2017-04-19 15:34 | EEG ---
DATE: ELECTROENCEPHALOGRAM REPORT INTRODUCTION: This is a digitally recorded EEG monitoring using standard EEG montages. BACKGROUND RHYTHM: The EEG shows a background activity of 8-9 Hz delta activity in parietooccipital region. The EEG activity is bilaterally symmetrical and synchronous. Superimposed beta activity was seen. ABNORMAL POTENTIALS: No spike, sharp waves, or focal slowing was seen. PHOTIC STIMULATION AND HYPERVENTILATION: Photic stimulation did not reveal any abnormality. Hyperventilation was not performed. IMPRESSION: Normal electroencephalogram. No epileptiform activity is seen in this electroencephalogram recording. Samson Solis MD
[2017-04-19] MEDS: Metoprolol Succinate 25 mg XL Tab PO SCH (17:00)
[2017-04-19] MEDS: Digoxin 125 mcg (0.125 mg) Tab PO SCH (17:57)
--- NOTE | 2017-04-19 18:08 | US ---
HISTORY: goiter TECHNIQUE: Sonographic evaluation of the thyroid gland. COMPARISON: No prior ultrasound available for direct comparison FINDINGS: Examination limited due to patient condition. RIGHT LOBE: Measures 3.1 x 1.3 x 1.8 cm. Heterogeneous parenchyma. Vascularity appears unremarkable. Nodules: Solid-appearing right upper pole nodule measures approximately 1.5 x 1.1 x 1.1 cm. LEFT LOBE: Measures 2.9 x 1.0 x 1.0 cm. Heterogeneous parenchyma. Vascularity appears unremarkable. . Nodules: None ISTHMUS: Measures 0.2 cm. Nodules: None OTHER FINDINGS: None . IMPRESSION: Limited study. Heterogeneous thyroid parenchyma. Solid-appearing right upper pole nodule measures approximately 1.5 x 1.1 x 1.1 cm. Suggest further evaluation with biopsy if indicated. Correlate clinically.
[2017-04-20] MEDS: Levothyroxine 50 MCG TAB PO SCH (06:08)
--- NOTE | 2017-04-20 06:55 | CP.PCM.PN ---
Subjective - Date & Time of Evaluation Date of Evaluation: 04/20/17 Time of Evaluation: 06:20 - Subjective Subjective: Patient seen and examined at bedside in no acute distress. As per one-on-one patient was continuously removing her clothes all night. Patient complains of right and left shoulder pain. States pain is present every day and all the time. Denies chest pain, palpitations, shortness of breath,fever, chills. Objective - Vital Signs/Intake and Output Vital Signs (last 24 hours): Temp Pulse Resp BP Pulse Ox 97.7 F 83 20 163/58 H 96 04/19/17 15:13 04/20/17 04:15 04/19/17 15:13 04/19/17 15:13 04/19/17 15:13 Intake and Output: 04/19/17 04/20/17 18:59 06:59 Intake Total 480 Balance 480 - Medications Medications: Current Medications Amlodipine Besylate (Norvasc) 10 mg PO DAILY [facility] Last Admin: 04/19/17 09:31 Dose: 10 mg Calcium/Vitamin D (Oscal-D 250 Mg-125 Units Tab) 1 tab PO DAILY [facility] Last Admin: 04/19/17 09:44 Dose: 1 tab Chlorthalidone (Hygroton) 25 mg PO DAILY [facility] Last Admin: 04/19/17 09:44 Dose: 25 mg Dabigatran (Pradaxa) 75 mg PO DAILY [facility] Last Admin: 04/19/17 09:44 Dose: 75 mg Digoxin (Lanoxin) 0.125 mg PO DAILY@1800 [facility] Last Admin: 04/19/17 17:57 Dose: 0.125 mg Diphenhydramine HCl (Benadryl) 25 mg IM Q6 PRN PRN Reason: Agitation Diphenhydramine HCl (Benadryl) 25 mg PO Q6 PRN PRN Reason: Anxiety Last Admin: 04/19/17 09:33 Dose: 25 mg Docusate Sodium (Colace) 100 mg PO DAILY [facility] Last Admin: 04/19/17 09:36 Dose: 100 mg Ferrous Sulfate (Feosol Liq) 300 mg PO TID [facility] Last Admin: 04/19/17 17:56 Dose: 300 mg Haloperidol Lactate (Haldol) 1 mg IM Q6 PRN PRN Reason: Agitation Last Admin: 04/19/17 15:39 Dose: 1 mg Levothyroxine Sodium (Synthroid) 50 mcg PO DAILY@0630 [facility] Last Admin: 04/20/17 06:08 Dose: 50 mcg Losartan Potassium (Cozaar) 50 mg PO DAILY [facility] Last Admin: 04/19/17 09:36 Dose: 50 mg Metoprolol Succinate (Toprol Xl) 25 mg PO DAILY [facility] Last Admin: 04/19/17 17:00 Dose: 25 mg Potassium Chloride (K-Dur 20 Meq Er Tab) 20 meq PO DAILY [facility] Last Admin: 04/19/17 09:41 Dose: 20 meq Quetiapine Fumarate (Seroquel) 25 mg PO HS [facility] Last Admin: 04/19/17 21:34 Dose: 25 mg Tramadol HCl (Ultram) 25 mg PO Q4 PRN PRN Reason: Pain, Mild (1-3) Last Admin: 04/19/17 09:35 Dose: 25 mg - Labs Labs: 04/19/17 11:21 04/19/17 11:21 - Constitutional Appears: Confused - Head Exam Head Exam: ATRAUMATIC, NORMAL INSPECTION, NORMOCEPHALIC - Eye Exam Eye Exam: EOMI, Normal appearance - ENT Exam ENT Exam: Mucous Membranes Moist, Normal Exam - Respiratory Exam Respiratory Exam: NORMAL BREATHING PATTERN. absent: Chest Wall Tenderness, Wheezes - Cardiovascular Exam Cardiovascular Exam: Irregular Rhythm, +S1, +S2, Murmur - GI/Abdominal Exam GI & Abdominal Exam: Soft, Hypoactive Bowel Sounds - Extremities Exam Extremities Exam: Calf Tenderness (bilateral), Pedal Edema (bilateral) - Neurological Exam Neurological Exam: Alert, Altered - Skin Skin Exam: Normal Color, Warm Assessment and Plan - Assessment and Plan (Free Text) Assessment: Patient is an 87 year old female with a past medical history of Arteriosclerotic heart disease, COPD, hypertension, mitral regurgitation, aortic regurgitation, and tricuspid regurgitation, DM, cardiomyopathy , chronic atrial fibrillation,uncontrolled hypothyroidism, depression and confusion who presented to [facility] on 04/17/17 [place]. Plan: Plan: 1. Syncope r/o cardiac etiology vs. neurological etiology - Atrial fibrillation on monitor, HR 96 - Carotid dopplers; 60-70% stenosis of right proximal ICA with moderate hemodynamic significance - Echocardiogram;results pending. Previous echo requested and to be faxed - BNP elevated at 2860 - Continue meds, will titrate accordingly
--- NOTE | 2017-04-20 07:46 | CP.PCM.PN ---
<Andrzej Kennedy - Last Filed: 04/20/17 10:02> Subjective - Date & Time of Evaluation Date of Evaluation: 04/20/17 Time of Evaluation: 06:50 - Subjective Subjective: Andrzej Kennedy D.O. PGY-2, GI Progress Note 87 year old female with a PMH of HTN, Afib on Pradaxa, hypothyroidism, and dementia who presented to the ER on 04/19 after a fall and for confusion. Patient was seen and examined at bedside. Patient continues to be delirious and confused, even when speaking in [place] at this time but has no acute complaints. Discussed case with nursing staff who notes patient was very agitated overnight, trying to get out of bed, was able to use the bed sam to urinate but has not had a bowel movement since yesterday when no melena or hematochezia was noted. Objective - Vital Signs/Intake and Output Vital Signs (last 24 hours): Temp Pulse Resp BP Pulse Ox 97.7 F 83 20 163/58 H 96 04/19/17 15:13 04/20/17 04:15 04/19/17 15:13 04/19/17 15:13 04/19/17 15:13 Intake and Output: 04/20/17 04/20/17 06:59 18:59 Intake Total 120 Balance 120 - Medications Medications: Current Medications Amlodipine Besylate (Norvasc) 10 mg PO DAILY [facility] Last Admin: 04/19/17 09:31 Dose: 10 mg Calcium/Vitamin D (Oscal-D 250 Mg-125 Units Tab) 1 tab PO DAILY [facility] Last Admin: 04/19/17 09:44 Dose: 1 tab Chlorthalidone (Hygroton) 25 mg PO DAILY [facility] Last Admin: 04/19/17 09:44 Dose: 25 mg Dabigatran (Pradaxa) 75 mg PO DAILY [facility] Last Admin: 04/19/17 09:44 Dose: 75 mg Digoxin (Lanoxin) 0.125 mg PO DAILY@1800 [facility] Last Admin: 04/19/17 17:57 Dose: 0.125 mg Diphenhydramine HCl (Benadryl) 25 mg IM Q6 PRN PRN Reason: Agitation Diphenhydramine HCl (Benadryl) 25 mg PO Q6 PRN PRN Reason: Anxiety Last Admin: 04/19/17 09:33 Dose: 25 mg Docusate Sodium (Colace) 100 mg PO DAILY [facility] Last Admin: 04/19/17 09:36 Dose: 100 mg Ferrous Sulfate (Feosol Liq) 300 mg PO TID [facility] Last Admin: 04/19/17 17:56 Dose: 300 mg Haloperidol Lactate (Haldol) 1 mg IM Q6 PRN PRN Reason: Agitation Last Admin: 04/19/17 15:39 Dose: 1 mg Levothyroxine Sodium (Synthroid) 50 mcg PO DAILY@0630 [facility] Last Admin: 04/20/17 06:08 Dose: 50 mcg Losartan Potassium (Cozaar) 50 mg PO DAILY [facility] Last Admin: 04/19/17 09:36 Dose: 50 mg Metoprolol Succinate (Toprol Xl) 25 mg PO DAILY [facility] Last Admin: 04/19/17 17:00 Dose: 25 mg Potassium Chloride (K-Dur 20 Meq Er Tab) 20 meq PO DAILY [facility] Last Admin: 04/19/17 09:41 Dose: 20 meq Quetiapine Fumarate (Seroquel) 25 mg PO HS [facility] Last Admin: 04/19/17 21:34 Dose: 25 mg Tramadol HCl (Ultram) 25 mg PO Q4 PRN PRN Reason: Pain, Mild (1-3) Last Admin: 04/19/17 09:35 Dose: 25 mg - Labs Labs: 04/19/17 11:21 04/19/17 11:21 - Constitutional Appears: Agitated, Confused - Head Exam Head Exam: ATRAUMATIC, NORMOCEPHALIC - Eye Exam Eye Exam: EOMI, PERRL. absent: Scleral icterus - ENT Exam ENT Exam: Mucous Membranes Moist, Normal Oropharynx - Neck Exam Neck Exam: Normal Inspection. absent: Tenderness - Respiratory Exam Respiratory Exam: Clear to Ausculation Bilateral. absent: Rhonchi, Wheezes - Cardiovascular Exam Cardiovascular Exam: RRR, +S1, +S2 - GI/Abdominal Exam GI & Abdominal Exam: Soft, Normal Bowel Sounds. absent: Distended, Tenderness - Extremities Exam Extremities Exam: absent: Calf Tenderness, Tenderness - Neurological Exam Neurological Exam: Alert, Awake. absent: Oriented x3 (x1) - Psychiatric Exam Psychiatric exam: Agitated - Skin Skin Exam: Dry, Warm Assessment and Plan - Assessment and Plan (Free Text) Assessment: 87 year old female with a PMH of HTN, Afib on Pradaxa, hypothyroidism, and dementia who presented after a fall and for confusion Plan: Delirium in the setting of known dementia Atrial fibrillation on pradaxa HTN Normocytic anemia Iron deficiency Hgb stable HD stable Given acute delirium and abnormal urinalysis, likely UTI as etiology Continue supportive care No plan for endoscopic evaluation at this time Can continue with HH diet Continue iron supplementation with ferrous sulfate Continue docusate Will start miralax Discussed with fellow and attending physician Thank you for the pleasure of participating in the care of this patient <Royer Reed MD - Last Filed: 04/20/17 12:41> Objective - Vital Signs/Intake and Output Vital Signs (last 24 hours): Temp Pulse Resp BP Pulse Ox 98.4 F 83 20 150/66 98 04/20/17 07:05 04/20/17 08:10 04/20/17 07:05 04/20/17 09:44 04/20/17 07:05 Intake and Output: 04/20/17 04/20/17 06:59 18:59 Intake Total 120 Balance 120 - Medications Medications: Current Medications Amlodipine Besylate (Norvasc) 10 mg PO DAILY [facility] Last Admin: 04/20/17 09:48 Dose: 10 mg Calcium/Vitamin D (Oscal-D 250 Mg-125 Units Tab) 1 tab PO DAILY [facility] Last Admin: 04/20/17 09:50 Dose: 1 tab Chlorthalidone (Hygroton) 25 mg PO DAILY [facility] Last Admin: 04/20/17 09:49 Dose: 25 mg Dabigatran (Pradaxa) 75 mg PO DAILY [facility] Last Admin: 04/20/17 09:49 Dose: 75 mg Digoxin (Lanoxin) 0.125 mg PO DAILY@1800 [facility] Last Admin: 04/19/17 17:57 Dose: 0.125 mg Diphenhydramine HCl (Benadryl) 25 mg IM Q6 PRN PRN Reason: Agitation Diphenhydramine HCl (Benadryl) 25 mg PO Q6 PRN PRN Reason: Anxiety Last Admin: 04/19/17 09:33 Dose: 25 mg Docusate Sodium (Colace) 100 mg PO DAILY [facility] Last Admin: 04/20/17 09:43 Dose: 100 mg Donepezil HCl (Aricept) 5 mg PO [facility] Ferrous Sulfate (Feosol Liq) 300 mg PO TID [facility] Last Admin: 12/08/17 09:48 Dose: 300 mg Furosemide (Lasix) 20 mg PO DAILY [facility] Last Admin: 04/20/17 09:44 Dose: 20 mg Haloperidol Lactate (Haldol) 1 mg IM Q6 PRN PRN Reason: Agitation Last Admin: 04/19/17 15:39 Dose: 1 mg Levothyroxine Sodium (Synthroid) 50 mcg PO DAILY@0630 [facility] Last Admin: 04/20/17 06:08 Dose: 50 mcg Losartan Potassium (Cozaar) 50 mg PO DAILY [facility] Last Admin: 04/20/17 09:43 Dose: 50 mg Metoprolol Succinate (Toprol Xl) 25 mg PO DAILY [facility] Last Admin: 04/20/17 09:47 Dose: 25 mg Polyethylene Glycol (Miralax) 17 gm PO DAILY [facility] Last Admin: 04/20/17 10:43 Dose: 17 gm Potassium Chloride (K-Dur 20 Meq Er Tab) 20 meq PO DAILY [facility] Last Admin: 04/20/17 09:43 Dose: 20 meq Quetiapine Fumarate (Seroquel) 25 mg PO HS [facility] Last Admin: 04/19/17 21:34 Dose: 25 mg Tramadol HCl (Ultram) 25 mg PO Q4 PRN PRN Reason: Pain, Mild (1-3) Last Admin: 04/19/17 09:35 Dose: 25 mg - Labs Labs: 04/20/17 08:58 04/20/17 08:58 Attending/Attestation - Attestation I have personally seen and examined this patient.: Yes I have fully participated in the care of the patient.: Yes I have reviewed all pertinent clinical information, including history, physical exam and plan: Yes Notes (Text): 04/20/17 12:40 I have seen and examined patient with GI fellow. In brief, this is an 87 year old female with history of atrial fibrillation on pradaxa, HTN, dementia, hypothyroidism who was brought to hospital after having mechanical fall while walking in park. Patient is currently unable to participate in meaningful conversation due to acute delerium condition.Additional information obtained via chart review, discussion with nursing staff, and discussion with patient family member. GI called for evaluation of worsening anemia. She denies abdominal pain, nausea, vomiting, diarrhea, fever/chills, melena, weight loss, or change in bowel habits. Unclear regarding prior endoscopic history. Rectal exam with brown stool. No bowel movement in past two days for which miralax was started. H/Hct at admission baseline. Diet as tolerated. No urgent indication for endoscopy. UTi treatment as per primary team. Will sign off for now. Please reconsult prn
[2017-04-20 09:07] LABS: BASO % 0.4 % (0.0-2.0); EOS % 0.1 % (0.0-4.0); LYMPH # 0.6 K/uL (1.0-4.3); LYMPH % 5.2 % (20.0-40.0); MEAN CELL VOLUME 86.7 fL (81.0-99.0); MEAN CORPUSCULAR HGB CONC 32.3 g/dL (33.0-37.0); MONO # 1.1 K/uL (0.0-0.8); MONO % 9.9 % (0.0-10.0); NRBC % 0.1 % (0.0-2.0); PLATELET COUNT 328 K/uL (130-400); RED CELL DISTRIBUTION WIDTH 15.1 % (11.5-14.5); WHITE BLOOD COUNT 11.1 K/uL (4.8-10.8)
[2017-04-20 09:27] LABS: ALB/GLOB RATIO 1.3 (1.0-2.1); ALKALINE PHOSPHATASE 101 U/L (38-126); ALT/SGPT 44 U/L (9-52); AST/SGOT 40 U/L (14-36); BILIRUBIN,TOTAL 1.5 mg/dL (0.2-1.3); BLOOD UREA NITROGEN 8 mg/dL (7-17); CALCIUM 8.5 mg/dl (8.6-10.4); CARBON DIOXIDE 34 mmol/L (22-30); CHLORIDE 99 mmol/L (98-107); GFR AFRICAN-AMERICAN > 60; GLUCOSE,RANDOM 121 mg/dL (65-105); SODIUM 140 mmol/L (132-148); TOTAL PROTEIN 5.5 g/dL (6.3-8.3)
[2017-04-20] MEDS: Potassium Chloride 20 mEq ER Tab PO SCH (09:43)
[2017-04-20] MEDS: Metoprolol Succinate 25 mg XL Tab PO SCH (09:47)
[2017-04-20] MEDS: Ferrous Sulfate 300 mg/5 mL Liq UD PO SCH ×3 (09:48→17:51)
[2017-04-20] MEDS: Calcium-Vit D 250 mg-125 Units Tab UD PO SCH (09:50)
[2017-04-20] MEDS: POLYETHYLENE GLYCOL 3350 17 GM/Dose PACKET PO SCH (10:43)
[2017-04-20 11:09] LABS: NEUTROPHIL 78 % (50-75); NUCLEATED RED BLOOD CELL 1 % (0-0); TOTAL CELLS COUNTED 100
--- NOTE | 2017-04-20 11:51 | CARD ---
APPROVED REPORT EKG Measurement Heart [id number] <Conclusion> Atrial fibrillation with premature ventricular or aberrantly conducted complexes Septal infarct, age undetermined Abnormal ECG
--- NOTE | 2017-04-20 12:06 | PN ---
DATE: NEUROLOGY PROGRESS NOTE SUBJECTIVE: The patient is lying on the bed, in no acute distress. As per nursing, the patient was awake the whole night restless. PHYSICAL EXAMINATION: VITAL SIGNS: Her blood pressure is 150/66, heart rate is 83 per minute, breathing at the rate of 16 per minute, temperature is 98.4 degrees Fahrenheit. HEENT: Head is normocephalic, atraumatic. NECK: Supple. There are no carotid bruits. LUNGS: Clear. CARDIOVASCULAR SYSTEM: S1 and S2 are audible. No murmurs. ABDOMEN: Soft and nontender. The bowel sounds are present. NEUROLOGY: Mental status: The patient is sleepy, but arousable. She follows some simple commands. Cranial nerve examination: Pupils are 3 mm, bilaterally reactive to light. Visual meza are full. Extraocular movements are intact. There is no facial asymmetry. She is moving all 4 extremities symmetrically. Power appears to be 4-5/5. Plantars downgoing bilaterally. LABORATORY DATA: Labs reviewed. MRI of the brain shows no acute intracranial abnormality. Severe chronic microangiopathic changes and moderate age-related global parenchymal volume loss. Old infarction in the right frontal, right posteroparietal and left parietooccipital subcortical white matter. She has had vitamin B12 and TSH levels done, which are normal. IMPRESSION: 1. Altered mental status. 2. Underlying dementia of Alzheimer's type. 3. Cerebrovascular disease. 4. History of atrial fibrillation. RECOMMENDATION: 1. The patient to be started on Aricept 5 mg once a day. 2. The patient is on Seroquel at nighttime, which we will continue. 3. The patient may have haloperidol as needed. 4. Please continue supportive care and other treatment. Thank you for the opportunity to participate in the care of this patient. Samson Solis MD
--- NOTE | 2017-04-20 12:55 | PN ---
DATE: SUBJECTIVE: The patient is an 87-year-old female. The patient is seen and examined at the bedside, looking comfortable. Feeling more awake, but confused. No hematuria. No hematochezia. No swelling of the leg. No chest pain. No palpitation. No headache. No dizziness. PHYSICAL EXAMINATION: VITAL SIGNS: Temperature 97.7, pulse 84, blood pressure 153/58, respiratory rate 20. HEENT: Head, normocephalic and atraumatic. Eyes PERRLA. Extraocular muscles are intact. Conjunctivae clear. Nose patent. Mucous membranes are moist. NECK: Supple. No carotid bruit, JVD or thyromegaly. CHEST: Bilaterally symmetrical. HEART: S1 and S2 positive. LUNGS: Clear to auscultation. ABDOMEN: Soft. Bowel sounds present. No organomegaly. EXTREMITIES: No edema, no cyanosis. NEUROLOGICAL: The patient is awake and alert, moving all 4 extremities. No focal deficit, but confused. MEDICATIONS: Benadryl, Colace, Cozaar, ferrous sulfate, Haldol, chlorthalidone, potassium. LABORATORY DATA: White blood cells 11.3, hemoglobin 9.2, hematocrit 28.8, platelets 264. Sodium 138, potassium 3.0, BUN 9, creatinine 0.7, glucose 138, calcium 7.8. ASSESSMENT AND PLAN: Ms. Vania Vinson is an 87-year-old lady with leukocytosis, anemia; hypokalemia, replaced; hyperglycemia, hypocalcemia, congestive heart failure, proteinuria, hematuria, went for thyroid ultrasound ordered by Dr. Perlita Cleary. The patient has heterogeneous thyroid parenchyma, solid appearing right upper pole nodule, measuring approximately 1.5 x 1.1 x 1.1 cm. Suggested further evaluation with biopsy if indicated, correlation clinically. We will talk to the patient's son. Dr. Samson Solis did electroencephalography. Echocardiography was done also. Results are pending. Seen by Dr. Jake Martin, sole polisher. The patient has history of atrial fibrillation, on Pradaxa, hypertension, dementia, hypothyroidism. The patient is still confused, cannot get meaningful conversation. Urinary tract infection, getting antibiotic. Gastroenterology wanted to do some endoscopy, but after resolving acute medical conditions. Brain MRI reviewed. Seen by Dr. Tab Helms. History of arteriosclerotic heart disease, chronic obstructive pulmonary disease, mitral regurgitation, aortic regurgitation, tricuspid regurgitation, diabetes mellitus, cardiomyopathy, depression and confusion, syncope, rule out cardiac etiology versus neurologic etiology. Echocardiography and carotid results are pending. Discussion done with nursing staff. Gastrointestinal and deep vein thrombosis prophylaxis. Repeat labs. We will follow up. Loyda Moreno MD DT: 04/20/2017 1:09:27Job # [id number]
[2017-04-20] MEDS: Tramadol 25 mg PO PRN (14:32)
[2017-04-20] MEDS: Digoxin 125 mcg (0.125 mg) Tab PO SCH (17:52)
--- NOTE | 2017-04-21 00:36 | PN ---
DATE: SUBJECTIVE: The patient is an 87-year-old female. The patient was examined at bedside, looking comfortable, is one-to-one, sometime restless removing her clothes all night, complaining of pain everywhere in her body. No fever, no chills. Actually is not able to give a good review of systems. PHYSICAL EXAMINATION: VITAL SIGNS: Temperature 97.7, pulse rate 80, respiratory rate 20, blood pressure 153/85, pulse oximetry of 96%. HEENT: Head normocephalic, atraumatic. Eyes PERRLA. Extraocular muscles intact. Conjunctivae clear. Nose patent. Mucous membrane moist. NECK: Supple. No carotid bruit, JVD, or thyromegaly. CHEST: Bilaterally symmetrical. HEART: S1 and S2 positive. LUNGS: Clear to auscultation. ABDOMEN: Soft. Bowel sounds present. No organomegaly. EXTREMITIES: No edema. No cyanosis. NEUROLOGICAL: The patient is awake, alert. Moving all 4 extremities. No focal deficit. MEDICATIONS: Norvasc, vitamin D, chlorthalidone, Pradaxa, Lanoxin, Benadryl, Colace, Haldol, Synthroid, Cozaar, Toprol, Seroquel, tramadol. LABORATORY DATA: Sodium 138, potassium 3.0, BUN 9, creatinine 0.7, glucose 138. ASSESSMENT AND PLAN: Ms. Vania Vinson is a 87-year-old lady with hypokalemia, repleted; hyperglycemia with past medical history of arteriosclerotic heart disease, chronic obstructive pulmonary disease, hypertension, mitral regurgitation, aortic regurgitation, tricuspid regurgitation, cardiomyopathy; chronic atrial fibrillation, uncontrolled; hypothyroidism, depression and confusion, still restless, is on one-to-one, history of syncopal attack, rule out cardiac etiology versus neurological etiology. Carotid Doppler shows 60-70% stenosis with moderate hemodynamically significant. Echocardiography results are pending. BNP is elevated at 2850. Seen by Dr. Helms, Dr. Reed and Dr. Solis. According to Dr. Reed, the patient has leukocytosis and anemia. Patient is on Pradaxa. Patient currently is unable to participate in a meaningful conversation due to acute delirium condition. Gastrointestinal consult was called to rule out the gastrointestinal cause of anemia. According to them, unclear regarding the prior endoscopic history. Rectal examination with brown stool. No bowel movement in the past 2 days, for which MiraLax was started. Hemoglobin and hematocrit at admission, baseline. Diet as tolerated. No urgent indication for endoscopy. urinary tract infection and looking for placement also. We will follow up. Loyda Moreno MD MTDD
[2017-04-21] MEDS: Levothyroxine 50 MCG TAB PO SCH (06:17)
[2017-04-21 08:47] LABS: ALB/GLOB RATIO 1.2 (1.0-2.1); ALKALINE PHOSPHATASE 92 U/L (38-126); ALT/SGPT 45 U/L (9-52); AST/SGOT 29 U/L (14-36); BILIRUBIN,TOTAL 1.4 mg/dL (0.2-1.3); BLOOD UREA NITROGEN 15 mg/dL (7-17); CALCIUM 8.2 mg/dl (8.6-10.4); CARBON DIOXIDE 38 mmol/L (22-30); CHLORIDE 95 mmol/L (98-107); GFR AFRICAN-AMERICAN > 60; GLUCOSE,RANDOM 103 mg/dL (65-105); POTASSIUM 2.8 mmol/L (3.6-5.2); SODIUM 138 mmol/L (132-148)
[2017-04-21 09:20] VITALS: RESP 20
[2017-04-21] MEDS: Ferrous Sulfate 300 mg/5 mL Liq UD PO SCH ×3 (09:20→17:12)
[2017-04-21] MEDS: Potassium Chloride 20 mEq ER Tab PO SCH (09:22)
[2017-04-21] MEDS: Metoprolol Succinate 25 mg XL Tab PO SCH (09:22)
[2017-04-21] MEDS: POLYETHYLENE GLYCOL 3350 17 GM/Dose PACKET PO SCH (09:22)
[2017-04-21] MEDS: Calcium-Vit D 250 mg-125 Units Tab UD PO SCH (09:22)
[2017-04-21 10:44] LABS: BASO % 0.3 % (0.0-2.0); EOS % 0.4 % (0.0-4.0); HEMATOCRIT 32.1 % (34.0-47.0); LYMPH # 0.7 K/uL (1.0-4.3); LYMPH % 6.6 % (20.0-40.0); MEAN CORPUSCULAR HEMOGLOBIN 28.1 pg (27.0-31.0); MEAN CORPUSCULAR HGB CONC 32.7 g/dL (33.0-37.0); MEAN PLATELET VOLUME 8.1 fL (7.2-11.7); MONO % 9.3 % (0.0-10.0); NRBC % 0.1 % (0.0-2.0); PLATELET COUNT 376 K/uL (130-400); RED CELL DISTRIBUTION WIDTH 15.5 % (11.5-14.5); WHITE BLOOD COUNT 10.8 K/uL (4.8-10.8)
[2017-04-21 11:28] LABS: NEUTROPHIL 86 % (50-75); NUCLEATED RED BLOOD CELL 1 % (0-0); TOTAL CELLS COUNTED 100
[2017-04-21] MEDS: Potassium Chloride 20 mEq/15 ml LIQ UD PO SCH ×2 (11:32→13:28)
[2017-04-21 16:33] VITALS: BP 122/71; PULSE 94; TEMP 97.8; O2SAT 96
[2017-04-21] MEDS: Digoxin 125 mcg (0.125 mg) Tab PO SCH (17:12)
[2017-04-21 17:13] VITALS: PULSE 78
--- NOTE | 2017-04-21 17:29 | PCM.HF ---
Heart Failure Core Measure Beta-Crystal Prescribed: Metoprolol Succinate Angiotensin II Receptor Crystal Prescribed: Yes AnticoagulationTherapy for Atrial Fibrillation/Atrialflutter: Yes
--- NOTE | 2017-04-21 17:33 | CP.PCM.PN ---
Subjective - Date & Time of Evaluation Date of Evaluation: 04/21/17 Time of Evaluation: 11:00 - Subjective Subjective: awake, confused, demented, no acute distress. Objective - Vital Signs/Intake and Output Vital Signs (last 24 hours): Temp Pulse Resp BP Pulse Ox 97.8 F 94 H 20 122/71 96 04/21/17 15:00 04/21/17 15:00 04/21/17 15:00 04/21/17 15:00 04/21/17 15:00 - Medications Medications: Current Medications Amlodipine Besylate (Norvasc) 10 mg PO DAILY [facility] Last Admin: 04/21/17 09:20 Dose: 10 mg Calcium/Vitamin D (Oscal-D 250 Mg-125 Units Tab) 1 tab PO DAILY [facility] Last Admin: 04/21/17 09:22 Dose: 1 tab Chlorthalidone (Hygroton) 25 mg PO DAILY [facility] Last Admin: 04/21/17 09:23 Dose: 25 mg Dabigatran (Pradaxa) 75 mg PO DAILY [facility] Last Admin: 04/21/17 09:22 Dose: 75 mg Digoxin (Lanoxin) 0.125 mg PO DAILY@1800 [facility] Last Admin: 04/21/17 17:12 Dose: 0.125 mg Diphenhydramine HCl (Benadryl) 25 mg IM Q6 PRN PRN Reason: Agitation Diphenhydramine HCl (Benadryl) 25 mg PO Q6 PRN PRN Reason: Anxiety Last Admin: 04/19/17 09:33 Dose: 25 mg Docusate Sodium (Colace) 100 mg PO DAILY [facility] Last Admin: 04/21/17 09:21 Dose: 100 mg Donepezil HCl (Aricept) 5 mg PO HS [facility] Last Admin: 04/20/17 21:42 Dose: 5 mg Ferrous Sulfate (Feosol Liq) 300 mg PO TID [facility] Last Admin: 04/21/17 17:12 Dose: 300 mg Furosemide (Lasix) 60 mg IVP DAILY [facility] Last Admin: 04/21/17 09:21 Dose: 60 mg Haloperidol Lactate (Haldol) 1 mg IM Q6 PRN PRN Reason: Agitation Last Admin: 04/19/17 15:39 Dose: 1 mg Levothyroxine Sodium (Synthroid) 50 mcg PO DAILY@0630 [facility] Last Admin: 04/21/17 06:17 Dose: 50 mcg Losartan Potassium (Cozaar) 50 mg PO DAILY [facility] Last Admin: 04/21/17 09:23 Dose: 50 mg Metoprolol Succinate (Toprol Xl) 25 mg PO DAILY [facility] Last Admin: 04/21/17 09:22 Dose: 25 mg Polyethylene Glycol (Miralax) 17 gm PO DAILY [facility] Last Admin: 04/21/17 09:22 Dose: 17 gm Potassium Chloride (K-Dur 20 Meq Er Tab) 20 meq PO DAILY [facility] Last Admin: 04/21/17 09:22 Dose: 20 meq Quetiapine Fumarate (Seroquel) 25 mg PO HS [facility] Last Admin: 04/20/17 21:42 Dose: 25 mg Tramadol HCl (Ultram) 25 mg PO Q4 PRN PRN Reason: Pain, Mild (1-3) Last Admin: 04/20/17 14:32 Dose: 25 mg - Labs Labs: 04/21/17 10:39 04/21/17 08:12 Assessment and Plan - Assessment and Plan (Free Text) Assessment: Patient with CHF, hypokalemia, seen and examined. Awake, talking, confused. Potassium replaced today. No acute distress. Discussed with DR Moreno, plan to discharge to [facility] where she will follow up on the potassium level in the morni and replace accordingly. Vital signs stable, no acute distress.
--- NOTE | 2017-04-21 21:42 | PN ---
DATE: SUBJECTIVE: The patient is an 87-year-old female. The patient was examined at bedside, looking comfortable. No nausea, vomiting or diarrhea. No hematuria or hematochezia. No swelling of the legs. No chest pain. No palpitation. No fever. No chills. Actually, the patient is not very cooperative for physical examination and is not a very good historian. PHYSICAL EXAMINATION: VITAL SIGNS: Temperature 97.8, pulse 94, blood pressure 122/71, respiratory rate 20. HEENT: Head normocephalic, atraumatic. Eyes PERRLA. Extraocular muscles intact. Conjunctivae clear. Nose patent. Mucous membrane moist. NECK: Supple. No carotid bruit. No JVD or thyromegaly. CHEST: Bilaterally symmetrical. HEART: S1 and S2 positive. LUNGS: Clear to auscultation. ABDOMEN: Soft. Bowel sounds present. No organomegaly. EXTREMITIES: No edema. No cyanosis. NEUROLOGICAL: The patient is awake, alert. Moving all four extremities. No focal deficit. MEDICATIONS: Aricept, Benadryl, Colace, Cozaar, Feosol, Haldol, chlorthalidone, Lanoxin, Lasix, MiraLax, tramadol, Toprol, Synthroid, Seroquel. LABORATORY DATA: White blood cells 10.8, hemoglobin 10.5, hematocrit 32.1, platelets 376. Sodium 138, potassium 2.8, BUN 15, creatinine 0.8, calcium 8.2. ASSESSMENT AND PLAN: Ms. Vania Vinson is an 87-year-old lady with history of leukocytosis, improved; anemia; hypokalemia, potassium given; hypocalcemia, calcium given; abnormal liver function test; proteinuria and hematuria, seen by Dr. Samson Solis, Dr. Royer Reed; altered mental status; underlying dementia of Alzheimer's type; cerebrovascular accident, history of atrial fibrillation. Currently, patient started on Aricept; Seroquel at nighttime which we will continue, haloperidol as needed, and supportive care. The patient lives alone, is not able to take care of herself. We have to transfer her to some rehab. She is not able to do her ADL, maybe history of a syncopal attack, maybe cardiac or neurology origin, history of arteriosclerotic heart disease, chronic obstructive pulmonary disease, hypertension, mitral regurgitation, aortic regurgitation, tricuspid regurgitation, cardiomyopathy, depression and confusion, history of fall, found [place] the police in the park, has been falling. We will continue the present treatment. Monitoring of heart rate. Echocardiogram done. BNP is elevated, working on that. We will follow up. Loyda Moreno MD MTDD
--- NOTE | 2017-04-22 21:07 | CARD ---
APPROVED REPORT EXAM: LIMITED Two-dimensional and M-mode echocardiogram with Doppler and color Doppler. Other Information Quality : AverageRhythm : INDICATION Syncope 2D DIMENSIONS IVSd1.4 (0.7-1.1cm)LVDd3.6 (3.9-5.9cm) PWd1.4 (0.7-1.1cm)LVDs2.1 (2.5-4.0cm) FS (%) 42.2 %LVEF (%)74.2 (>50%) M-Mode DIMENSIONS Left Atrium (MM)5.39 (2.5-4.0cm)Aortic Root2.93 (2.2-3.7cm) Aortic Cusp Exc.2.09 (1.5-2.0cm) Mitral Valve E/A ratio0.0 TDI E/Lateral E'0.0E/Medial E'0.0 Tricuspid Valve TR Peak [id number] Peak [id number] <Conclusion> Left ventricle: thickness: mild concentric thickening; size: normal; overall ejection fraction: 75%: diastolic filling pressures: normal Mitral valve: annulus: normal: leaflets: normal: excursion: normal; no significant trans-mitral gradient: mild incompetence: left atrium:dilated Aortic valve: leaflets:mild thickeningl: excursion: normal; no significant trans-aortic gradient: No significant incompetence: aortic root: normal Right sided Structures: Pulmonary valve: normal; mild incompetence; Tricuspid valve: normal; mild incompetence: Intra-cardiac hemodynamics: pulmonary systolic pressures: 42 mmHg; central venous pressures: indeterminate No pericardial effusion; lrge left pleural effusion
--- NOTE | 2017-04-25 06:27 | DS ---
Discharged to Rehab on 04/21/2017. CHIEF COMPLAINT: Confusion. HISTORY OF PRESENT ILLNESS: Mrs. Vania Vinson is an 87-year-old female, brought to the Emergency Room by EMS, has been tripping and falling, confused, and she does not recall falling. According to EMS, the patient was found by the police in the park where she tripped and fell. The patient states that she lives alone and denies any other complaints. At the time of admission, she was completely confused. Patient has a history of atrial fibrillation, congestive heart failure, hypertension, hypothyroidism. We admitted the patient and did a CAT scan of the head, CAT scan of the chest, and brain MRI. Seen by the psychiatrist. Thyroid ultrasound was done. Neurology, Dr. Samson Solis, saw the patient. Dr. Royer Reed saw the patient. The patient was seen by Dr. Tashia Bonilla. Patient improved. Discharged to [facility] at [facility] for continuity of care and for physical therapy. PAST MEDICAL HISTORY: Hypertension, congestive heart failure, hypothyroidism. HABITS: No smoking. No drugs. No ethanol. FAMILY HISTORY: Father and mother noncontributory. REVIEW OF SYSTEMS: Patient was seen and examined at the bedside on 04/21/2017, looking comfortable, little bit better, still anxious. No fever, no chills. For more detail, see my progress notes dictated on 04/21/2017 at 17:37. We will follow up patient in [facility]. Loyda Moreno MD
== END 2017-04-21 18:11 | DRG 309 ==
LOC: C.ER 13:48 → C.9E 16:18 → C.6T 22:09
PROVIDERS: ADMIT Internal Medicine; ATTEND Internal Medicine
DX: I48.91 Unspecified atrial fibrillation (principal); F05 Delirium due to known physiological condition; E11.65 Type 2 diabetes mellitus with hyperglycemia; I42.9 Cardiomyopathy, unspecified; N39.0 Urinary tract infection, site not specified; Z68.1 Body mass index [BMI] 19.9 or less, adult; I50.9 Heart failure, unspecified; I11.0 Hypertensive heart disease with heart failure; G30.9 Alzheimer's disease, unspecified; I25.10 Atherosclerotic heart disease of native coronary artery without angina pectoris; F41.9 Anxiety disorder, unspecified; J44.9 Chronic obstructive pulmonary disease, unspecified; Z91.81 History of falling; E87.6 Hypokalemia